=== PATIENT | male | born 1965 | race Caucasian/White ===

== ENCOUNTER 2016-12-22 12:24 | Emergency (ER) | payer SELFPAY ==
[2016-12-22 13:55] LABS: Anion Gap 17 mmol/L; BUN/Creatinine Ratio 16.36; Blood Urea Nitrogen 18 mg/dL (9-20); Calcium 9.7 mg/dL (8.4-10.2); Carbon Dioxide 26 mmol/L (22-30); Chloride 100.3 mmol/L (98-107); Glucose 104 mg/dL (75-100); Potassium 4.5 mmol/L (3.6-5.0); Sodium 139 mmol/L (137-145)
[2016-12-22 14:04] LABS: Basophils % (Auto) 0.4 % (0.0-1.8); Eosinophils % (Auto) 1.1 % (0.0-4.3); Hematocrit 43.4 % (35.5-45.6); Hemoglobin 14.4 gm/dl (11.8-15.2); Mean Corpuscular HGB Conc 33 % (32-34); Mean Corpuscular Hemoglobin 33 pg (28-32); Mean Corpuscular Volume 100 fl (84-94); Platelet Count 135 K/mm3 (140-440); Red Blood Count 4.35 M/mm3 (3.65-5.03); Red Cell Distribution Width 14.7 % (13.2-15.2); White Blood Count 4.1 K/mm3 (4.5-11.0)
[2016-12-22] MEDS ORDERED: ZOFRAN ODT PO ONE (23:43)
[2016-12-22] MEDS ORDERED: MORPHINE IM ONE (23:43)
--- NOTE | 2016-12-22 23:48 | Emergency Department Report ---
HPI - General Chief Complaint: Chest Pain Time Seen by Provider: 12/22/16 23:13 - HPI HPI: The patient is a 51-year-old male who presents for evaluation of chest pain and back pain. The patient reports chest pain and bilateral lower back pain for the past 3 days. He states that his pains began while at work lifting heavy objects. He states that his pain has been on and off, 9/10 in severity at worse , aching and sharp in quality, exacerbated with movement of the back or lifting a heavy object with both hands. The patient shares that he has experienced back pain in the same location multiple times in past years. He states that his current back pain is consistent with previous episodes of back pain. The patient denies trauma to the chest wall or back, fever, neck pain or stiffness, cough, dyspnea, hemoptysis, syncope, unilateral leg swelling, rash, recent immobilization, history of DVT or PE, recent cancer. ED Past Medical Hx - Past Medical History Previous Medical History?: Yes Hx Diabetes: Yes Additional medical history: lupus - Surgical History Past Surgical History?: No - Social History Smoking Status: Never Smoker Substance Use Type: None - Medications Home Medications: Home Medications Medication Instructions Recorded Confirmed Last Taken Type traMADol [Ultram 50 MG tab] 50 mg PO Q6HR PRN #20 tablet 12/23/16 Unknown Rx ED Review of Systems ROS: Stated complaint: HEAD/BACK/CHEST PAIN Other details as noted in HPI Constitutional: denies: fever ENT: denies: throat or neck pain Respiratory: denies: cough, shortness of breath Cardiovascular: reports: chest pain Endocrine: denies unexplained weight loss or gain Gastrointestinal: denies: abdominal pain, nausea Genitourinary: denies: dysuria Musculoskeletal: reports back pain denies: leg swelling Skin: denies: rash Neurological: denies: headache Hematological/Lymphatic: denies: easy bleeding or easy bruising Psych: denies sadness or hopelessness Physical Exam - Physical Exam Vital Signs: Vital Signs 12/22/16 12:30 Temperature 98.1 F Pulse Rate 78 Respiratory 18 Rate Blood Pressure 105/78 O2 Sat by Pulse 100 Oximetry Physical Exam: General: well-nourished, well-developed, no acute distress Head: Normocephalic, atraumatic Eyes: normal sclera, EOMI, PERRL, no nystagmus ENT: Mucous membranes are pink and moist Neck: trachea midline, neck supple, No neck stiffness with extension or flexion , no cervical adenopathy Respiratory: Breath sounds equal bilaterally, no wheezing, rales, or rhonchi Cardio: S1 and S2 present, no murmurs, rubs, gallops, capillary refill is brisk Abdomen: Normoactive bowel sounds, soft abdomen, no rigidity, no guarding or rebound tenderness Chest WALL/Back: Inspection the back is unremarkable, there is no redness, ecchymosis, warmth, fluctuance, crepitus, Tenderness to palpation present to bilateral upper thoracic, midthoracic, and upper lumbar paraspinal musculature, no spinous step-off or obvious deformity, no midline spinous process tenderness to palpation, full passive range of motion at the hips intact, ipsi-lateral and contralateral straight leg raise tests are negative. On extremity testing, compartments are soft and pliable, no obvious gross motor strength deficit, 5+ motor strength, including extension of the great toe bilaterally, no muscular atrophy, spasticity, fasciculations, or clonus, no obvious gross sensation deficit including web space between 1st and 2nd toes, reflexes 2+ & symmetric on DTR testing at the knee and ankle joints, distal pulses intact. Musc: No pitting edema Skin: No rash Neuro: Alert oriented 3, no facial drooping, normal speech, no sensation or motor deficit in the arms or legs, reflexes are 2+ symmetric on DTR testing, patient able to ablate without abnormal gait, Romberg negative, brudinski and Kernig's negative Psych: Normal affect ED Course Vital Signs 12/22/16 12:30 Temperature 98.1 F Pulse Rate 78 Respiratory 18 Rate Blood Pressure 105/78 O2 Sat by Pulse 100 Oximetry ED Medical Decision Making - Lab Data Result diagrams: 12/22/16 13:25 12/22/16 13:25 - Medical Decision Making The patient was seen and examined by myself. The patient is placed on a cardiac catheterization technologist and continuous pulse ox. On initial evaluation, the patient was found to be in no distress. No findings on exam concerning for cauda equina syndrome, spinal stenosis, or epidural abscess. As the patient has no midline tenderness on exam, no neuro deficits, and no findings concerning for emergent etiology of their back pain, imaging o the back will not be obtained at this time. EKG was negative for findings suggestive of acute cardiac infarct. Labs and imaging are obtained. The patient is given IM dose of morphine for his pain. Chest x-ray is negative for pneumothorax, focal consolidation, pulmonary vascular congestion, pleural effusion, or other obvious acute cardiopulmonary disease process. Lab results were non-concerning including levels of troponin, WBC, hemoglobin, hematocrit, electrolytes, renal function. The patient was reevaluated and reported that their symptoms were markedly improved. As the patient has a ELIANE risk score less than 2, and a well's score less than 2, the patient is at low risk of ACS or pulmonary emboli etiology of their symptoms. The patient is stable for discharge with outpatient follow-up. The patient is given follow-up and return instructions. The patient expressed understanding and agreed with the plan. The patient is discharged in stable condition. Critical care attestation.: If time is entered above; I have spent that time in minutes in the direct care of this critically ill patient, excluding procedure time. ED Disposition Clinical Impression: Acute bilateral low back pain without sciatica, Acute chest pain Disposition: DISCHARGED TO HOME OR SELFCARE Is pt being admited?: No Does the pt Need Aspirin: No Condition: Stable Instructions: Chest Pain (ED), Low Back Strain (ED), Acute Low Back Pain (ED) Prescriptions: traMADol [Ultram 50 MG tab] 50 mg PO Q6HR PRN #20 tablet PRN Reason: Pain Referrals: PRIMARY CARE, [Primary Care Provider] - 3-5 Days Time of Disposition: 23:44
[2016-12-23 00:51] VITALS: BP 123/72
--- NOTE | 2016-12-23 08:23 | XRay Report ---
AP CHEST : 12/23/16 CLINICAL: Chest pain. COMPARISON:None FINDINGS: Normal heart and pulmonary vessels. The lungs are normally expanded and clear. The bones and soft tissues are unremarkable. IMPRESSION: Normal chest.
== END 2016-12-23 00:49 | disposition home or self-care (01) ==
LOC: ED 12:24
DX: M54.5 Low back pain (principal); R07.9 Chest pain, unspecified; E11.9 Type 2 diabetes mellitus without complications
CPT/HCPCS: 36415; 71010; 80048; 82962; 84484; 85025; 93005; 93010; 96372; 99285; J2270

== ENCOUNTER 2017-02-18 11:04 | Emergency (ER) | payer SELFPAY ==
[2017-02-18 12:15] LABS: Basophils % (Auto) 0.6 % (0.0-1.8); Eosinophils % (Auto) 1.9 % (0.0-4.3); Hematocrit 40.6 % (35.5-45.6); Hemoglobin 13.8 gm/dl (11.8-15.2); Mean Corpuscular HGB Conc 34 % (32-34); Mean Corpuscular Hemoglobin 34 pg (28-32); Mean Corpuscular Volume 99 fl (84-94); Platelet Count 139 K/mm3 (140-440); Red Blood Count 4.09 M/mm3 (3.65-5.03); Red Cell Distribution Width 14.4 % (13.2-15.2); White Blood Count 2.9 K/mm3 (4.5-11.0)
[2017-02-18 12:55] LABS: Alanine Aminotransferase 14 units/L (7-56); Albumin 4.1 g/dL (3.9-5); Albumin/Globulin Ratio 1.4 %; Alkaline Phosphatase 69 units/L (35-129); Anion Gap 15 mmol/L; BUN/Creatinine Ratio 21.25; Blood Urea Nitrogen 17 mg/dL (9-20); Calcium 9.5 mg/dL (8.4-10.2); Carbon Dioxide 26 mmol/L (22-30); Chloride 106.5 mmol/L (98-107); Glucose 59 mg/dL (75-100); Lipase 74 units/L (13-60); Potassium 4.5 mmol/L (3.6-5.0); Sodium 143 mmol/L (137-145); Total Protein 7.1 g/dL (6.3-8.2)
[2017-02-18 13:46] LABS: Bilirubin,Urine NEG (Negative); Blood,Urine NEG (Negative); Ketones,Urine NEG (Negative); Leukocyte Esterase,Urine NEG (Negative); Mucus,Urine FEW /HPF; Nitrite,Urine NEG (Negative); Protein,Urine <15 mg/dL mg/dL (Negative); RBC,Urine < 1.0 /HPF (0.0-6.0); Urobilinogen,Urine < 2.0 mg/dL (<2.0); WBC,Urine < 1.0 /HPF (0.0-6.0)
[2017-02-18] MEDS ORDERED: NACL 0.9% 500 ML 1,000 ML IV ONE (20:24)
[2017-02-18] MEDS ORDERED: REGLAN IV ONE (20:24)
--- NOTE | 2017-02-18 20:55 | Cat Scan Report ---
FINAL REPORT PROCEDURE: CT HEAD/BRAIN WO CON TECHNIQUE: Computerized tomography of the head was performed without contrast material. HISTORY: headache COMPARISON: No prior studies are available for comparison. FINDINGS: No CT evidence of intracranial mass, hemorrhage, acute territorial infarction, or hydrocephalus. The intracranial arteries are symmetric in density. Calvarium is intact. Visualized paranasal sinuses are aerated. There is a partial opacification of the left mastoid. IMPRESSION: Small amount of fluid is seen in the left mastoid. No CT evidence of acute intracranial abnormality
--- NOTE | 2017-02-18 22:27 | Emergency Department Report ---
ED General Adult HPI - General Chief complaint: Nausea/Vomiting/Diarrhea Stated complaint: GENERAL PAIN Time Seen by Provider: 02/18/17 19:28 Source: patient Mode of arrival: Ambulatory Limitations: Language Barrier - History of Present Illness Initial comments: 51 y/o M, hx obtained using prior authorization nurse, pt states for the past 3 days pt has noted a mild headache, diffuse joint aches, myalgias, and vomiting/lightheadedness. Pt denies fever, chills, cough, pleurisy. Pt denies abdominal pain, back pain, fever, chills. Headache is c/w usual headaches. Severity scale (0 -10): 6 - Related Data Previous Rx's Medication Instructions Recorded Last Taken Type traMADol [Ultram 50 MG tab] 50 mg PO Q6HR PRN #20 tablet 12/23/16 Unknown Rx Butalb/Acetamin/Caff 50-325-40 1 each PO Q4H PRN #12 tablet 02/18/17 Unknown Rx [Fioricet] Ondansetron [Zofran Odt] 4 mg PO Q8HR PRN #12 tab.rapdis 02/18/17 Unknown Rx Allergies Allergy/AdvReac Type Severity Reaction Status Date / Time No Known Allergies Allergy Verified 02/18/17 11:32 ED Review of Systems ROS: Stated complaint: GENERAL PAIN Other details as noted in HPI Comment: All other systems reviewed and negative Constitutional: denies: chills, fever Eyes: denies: eye pain, eye discharge, vision change ENT: denies: ear pain, throat pain Respiratory: denies: cough, shortness of breath, wheezing Cardiovascular: denies: chest pain, palpitations Endocrine: no symptoms reported Gastrointestinal: denies: abdominal pain, nausea, diarrhea Genitourinary: denies: urgency, dysuria Musculoskeletal: denies: back pain, joint swelling, arthralgia Skin: denies: rash, lesions Neurological: denies: headache, weakness, paresthesias Psychiatric: denies: anxiety, depression Hematological/Lymphatic: denies: easy bleeding, easy bruising ED Past Medical Hx - Past Medical History Previous Medical History?: Yes Hx Diabetes: Yes Additional medical history: lupus - Surgical History Past Surgical History?: No - Social History Smoking Status: Former Smoker Substance Use Type: Prescribed - Medications Home Medications: Home Medications Medication Instructions Recorded Confirmed Last Taken Type traMADol [Ultram 50 MG tab] 50 mg PO Q6HR PRN #20 tablet 12/23/16 Unknown Rx Butalb/Acetamin/Caff 50-325-40 1 each PO Q4H PRN #12 tablet 02/18/17 Unknown Rx [Fioricet] Ondansetron [Zofran Odt] 4 mg PO Q8HR PRN #12 tab.rapdis 02/18/17 Unknown Rx ED Physical Exam - General Limitations: Language Barrier General appearance: alert, in no apparent distress - Head Head exam: Present: atraumatic, normocephalic - Eye Eye exam: Present: normal appearance, PERRL, EOMI - ENT ENT exam: Present: mucous membranes moist - Neck Neck exam: Present: normal inspection, other (no signs of meningismus,) - Respiratory Respiratory exam: Present: normal lung sounds bilaterally. Absent: respiratory distress - Cardiovascular Cardiovascular Exam: Present: regular rate, normal rhythm. Absent: systolic murmur, diastolic murmur, rubs, gallop - GI/Abdominal GI/Abdominal exam: Present: soft, normal bowel sounds. Absent: distended, tenderness, guarding, rebound - Rectal Rectal exam: Present: deferred - Extremities Exam Extremities exam: Present: normal inspection, full ROM - Back Exam Back exam: Present: normal inspection, full ROM - Neurological Exam Neurological exam: Present: alert, oriented X3, CN II-XII intact - Psychiatric Psychiatric exam: Present: normal affect, normal mood - Skin Skin exam: Present: warm, dry, intact, normal color. Absent: rash ED Course Vital Signs 02/18/17 02/18/17 02/18/17 11:49 17:25 17:29 Temperature 98.3 F Pulse Rate 55 L 57 L Respiratory 18 18 18 Rate Blood Pressure 97/62 Blood Pressure 103/67 [Right] O2 Sat by Pulse 100 99 100 Oximetry 02/18/17 19:35 Temperature Pulse Rate 58 L Respiratory 18 Rate Blood Pressure Blood Pressure 104/68 [Right] O2 Sat by Pulse 97 Oximetry ED Medical Decision Making - Lab Data Result diagrams: 02/18/17 11:54 02/18/17 11:54 - Radiology Data CT report reviewed - Medical Decision Making Pt well appearing, ambulating throughout ED to use restroom, will get CT head to r/o ICH, basic labs to r/o anemia. s/p IVF/Reglan reassessment noted headache resolved Verbal discharge instructions given including instructions for return as well as medication precautions Critical care attestation.: If time is entered above; I have spent that time in minutes in the direct care of this critically ill patient, excluding procedure time. ED Disposition Clinical Impression: Headache Qualifiers: Headache type: unspecified Headache chronicity pattern: episodic headache Intractability: not intractable Qualified Code(s): R51 - Headache Vomiting Qualifiers: Vomiting type: unspecified Vomiting Intractability: non-intractable Nausea presence: without nausea Qualified Code(s): R11.11 - Vomiting without nausea Disposition: DISCHARGED TO HOME OR SELFCARE Is pt being admited?: No Does the pt Need Aspirin: No Condition: Stable Instructions: Migraine Headache (ED) Prescriptions: Butalb/Acetamin/Caff 50-325-40 [Fioricet] 1 each PO Q4H PRN #12 tablet PRN Reason: Headache Ondansetron [Zofran Odt] 4 mg PO Q8HR PRN #12 tab.rapdis PRN Reason: Nausea And Vomiting Referrals: PRIMARY CARE, [Primary Care Provider] - 3-5 Days Time of Disposition: 22:29
[2017-02-19 00:14] VITALS: BP 110/64
== END 2017-02-18 21:55 | disposition home or self-care (01) ==
LOC: ED 11:04
DX: R51 Headache (principal); R11.11 Vomiting without nausea; E11.9 Type 2 diabetes mellitus without complications; Z87.891 Personal history of nicotine dependence
CPT/HCPCS: 36415; 70450; 80053; 81001; 82962; 83690; 85025; 96361; 96374; 99284; J2765; J7040